=== PATIENT | male | born 1985 | race African-American/Black ===

== ENCOUNTER 2017-11-17 13:00 | Outpatient (RCR) | payer OTHER ==
[2017-09-17 14:14] VITALS: BP 135/66; PULSE 79; TEMP 98
[2017-10-24 12:56] VITALS: BP 119/72; PULSE 90; TEMP 98.5
[~2017-11-17] VITALS: Ht 182.9 cm; Wt 104.0 kg
[~2017-11-17 13:00] MED LIST: ALBUTEROL S0.4 MG/ML PO; RT ADVAIR 228 DISKUS IH; SINGULAIR 110 MG/TAB PO
[2017-11-17 14:08] VITALS: BP 129/82; PULSE 101; TEMP 98.7
== END 2017-12-02 | disposition still patient (30) ==
LOC: EUO
DX: J45.909 Unspecified asthma, uncomplicated (principal); Z79.899 Other long term (current) drug therapy
CPT/HCPCS: J2357